=== PATIENT | female | born 1955 | race Caucasian/White ===

== ENCOUNTER 2019-10-17 21:03 | Emergency (ER) | payer BC ==
[2019-10-17] MEDS ORDERED: predniSONE 20 MG TAB ONE (21:52)
== END 2019-10-17 21:56 | disposition home or self-care (01) ==
LOC: NAV ERS 21:03
DX: J06.9 Acute upper respiratory infection, unspecified (principal); I10 Essential (primary) hypertension; Z87.891 Personal history of nicotine dependence; Z79.899 Other long term (current) drug therapy; Z79.51 Long term (current) use of inhaled steroids
CPT/HCPCS: 99283; J7512

== ENCOUNTER 2023-12-09 12:18 | Outpatient (CLI) | payer BC | END 2023-12-09 12:19 | disposition home or self-care (01) | LOC: NAV RAD 12:18 | PROVIDERS: ATTEND Family Medicine | DX: J06.9 Acute upper respiratory infection, unspecified (principal) | CPT/HCPCS: 71046 ==